=== PATIENT | male | born 1980 ===

== ENCOUNTER 2017-07-25 15:52 | Emergency (ER) | payer SELFPAY ==
[~2017-07-25] VITALS: Ht 170.2 cm; Wt 90.9 kg
[2017-07-25 16:00] VITALS: BP 159/99; PULSE 105; RESP 20; TEMP 98.6; O2SAT 98
--- NOTE | 2017-07-25 18:03 | PD ---
HPI Chief Complaint: Pain: Acute or Chronic Time Seen by Provider: 17:30 Travel History International Travel<30 days: No Contact w/Intl Traveler<30days: No Traveled to known affect area: No History of Present Illness HPI 37-year-old male presents to the emergency room for evaluation of severe right knee pain that started suddenly 4 hours prior to arrival. Patient denies any trauma or injury. States it has been aching over the past 3 days but pain was tolerable. States after sitting down for about 30 minutes, he could not get up , walk, or move his knee without excruciating pain. He called 911 and they brought him to the ED. Patient is currently homeless and has been walking more than normal lately. He has not taken anything for symptoms. Denies fever, chills, nausea, vomiting. Denies paresthesias. He has left knee pain as well but nothing compared to the right. His only chronic medical conditions are psychiatric. No daily medications. PFSH Social History Tobacco Use: Yes Allergies-Medications (Allergen,Severity, Reaction): Coded Allergies: No Known Allergies (Verified Allergy, Unknown, 07/25/17) Reported Meds & Prescriptions Reported Meds & Active Scripts Active No Active Prescriptions or Reported Medications Review of Systems Except as stated in HPI: all other systems reviewed are Neg Physical Exam Narrative GENERAL: Well-nourished, well-developed male in no acute distress. Afebrile. Ambulatory. SKIN: Focused skin assessment warm/dry. No erythema or ecchymosis. Mildly increased warmth to the right knee. HEAD: Normocephalic. EYES: No scleral icterus. No injection or drainage. NECK: Supple, trachea midline. No JVD or lymphadenopathy. CARDIOVASCULAR: Regular rate and rhythm without murmurs, gallops, or rubs. RESPIRATORY: Breath sounds equal bilaterally. No accessory muscle use. MUSCULOSKELETAL: No cyanosis. Left knee without any edema and with full range of motion. Right knee is extremely edematous with obvious effusion. Patient can flex to about 150 and cannot extend fully. 2+ dorsalis pedis pulse. Data Data Last Documented VS Vital Signs Date Time Temp Pulse Resp B/P (MAP) Pulse Ox O2 Delivery O2 Flow Rate FiO2 07/25/17 16:00 98.6 105 20 159/99 (119) 98 Room Air Orders Orders Complete Blood Count With Diff (07/25/17 17:41) Westergren Sedimentation Rate (07/25/17 17:41) Knee, Ltd (1 Or 2vws) (07/25/17 ) Lidocaine 1% Inj (50 Ml) (Xylocaine 1% I (07/25/17 21:00) Synovial Fl Cell Count + Diff (07/25/17 20:48) Synovial Fluid Crystals (07/25/17 20:48) Synovial Fluid Glucose (07/25/17 20:48) Synovial Fluid Total Protein (07/25/17 20:48) Fluid Culture And Gram Stain (07/25/17 20:48) Labs Laboratory Tests Test 07/25/17 18:20 White Blood Count 10.5 TH/MM3 Red Blood Count 4.10 MIL/MM3 Hemoglobin 14.1 GM/DL Hematocrit 39.1 % Mean Corpuscular Volume 95.3 FL Mean Corpuscular Hemoglobin 34.3 PG Mean Corpuscular Hemoglobin Concent 36.0 % Red Cell Distribution Width 12.2 % Platelet Count 211 TH/MM3 Mean Platelet Volume 6.7 FL Neutrophils (%) (Auto) 67.0 % Lymphocytes (%) (Auto) 22.1 % Monocytes (%) (Auto) 10.3 % Eosinophils (%) (Auto) 0.3 % Basophils (%) (Auto) 0.3 % Neutrophils # (Auto) 7.0 TH/MM3 Lymphocytes # (Auto) 2.3 TH/MM3 Monocytes # (Auto) 1.1 TH/MM3 Eosinophils # (Auto) 0.0 TH/MM3 Basophils # (Auto) 0.0 TH/MM3 CBC Comment AUTO DIFF Differential Comment AUTO DIFF CONFIRMED Platelet Estimate NORMAL Platelet Morphology Comment NORMAL Red Cell Morphology Comment NORMAL Erythrocyte Sedimentation Rate 63 mm/hr [facility] Medical Decision Making Medical Screen Exam Complete: Yes Emergency Medical Condition: Yes Medical Record Reviewed: Yes Differential Diagnosis Effusion, septic arthritis, strain, sprain, internal derangement Narrative Course 37-year-old male presents to the emergency room for evaluation of severe right knee pain and swelling that started earlier today. Patient has had mild achiness and bilateral knees for the past 3 days but he developed sudden onset swelling and pain 4 hours prior to arrival. Patient denies fever or chills. He is currently homeless. Denies any trauma or injury. Physical exam reveals large and obvious effusion of the right knee. Right lower extremity is neurovascular intact. Right knee is slightly more red and hot than the left. X -ray shows effusion. CBC and sedimentation rate obtained. CBC is unremarkable. Sedimentation rate is elevated at 63. I have suspicion for septic arthritis. Patient will be signed out to nighttime provider pending knee aspiration. Please see his note for further details and disposition. Scripts No Active Prescriptions or Reported Meds Condition: Alexandra Garcia Jul 25, 2017 18:03
--- NOTE | 2017-07-25 18:37 | RADRPT ---
EXAM DATE/TIME: 07/25/2017 18:26 [facility] COMPARISON: No previous studies available for comparison. INDICATIONS : Swelling with no known injury. MEDICAL HISTORY : None. SURGICAL HISTORY : None. ENCOUNTER: Initial ACUITY: 1 day PAIN SCORE: 9/10 LOCATION: Right Knee. FINDINGS: There is a large suprapatellar knee joint effusion. Mild to moderate osteoarthritis is noted involvin g the patellofemoral and lateral femorotibial joints. There is no acute fracture or dislocation. CONCLUSION: 1. Large suprapatellar knee joint effusion. 2. Mild to moderate osteoarthritis involving the patellofemoral and lateral femorotibial joints. 3. No acute fracture or dislocation. Karthik Vee MD on July 25, 2017 at 18:35 Board Certified Radiologist. This report was verified electronically.
[2017-07-25 18:42] LABS: BASOPHIL % 0.3 % (0.0-2.0); EOSINOPHIL % 0.3 % (0.0-4.0); HEMATOCRIT 39.1 % (39.0-51.0); LYMPH % 22.1 % (9.0-44.0); LYMPHOCYTE # 2.3 TH/MM3 (1.0-4.8); MEAN CELL VOLUME 95.3 FL (80.0-100.0); MEAN CORPUSCULAR HEMOGLOBIN 34.3 PG (27.0-34.0); MONO % 10.3 % (0.0-8.0); PLATELET COUNT 211 TH/MM3 (150-450); RED CELL DISTRIBUTION WIDTH 12.2 % (11.6-17.2); WHITE BLOOD COUNT 10.5 TH/MM3 (4.0-11.0)
[2017-07-25 18:45] LABS: HEMO FLAGS AUTO DIFF
[2017-07-25 20:27] LABS: PLATELET ESTIMATE SMEAR NORMAL (NORMAL); PLATELET MORPHOLOGY NORMAL (NORMAL); SCAN/DIFF AUTO DIFF CONFIRMED
[2017-07-25] MEDS ORDERED: LIDOCAINE HCL 1% 50 ML VIAL INFIL ONE (21:00)
--- NOTE | 2017-07-25 21:19 | PD ---
Physical Exam Narrative Patient was seen by my exceptional children teacher assistant and signed out to me. Data Data Last Documented VS Vital Signs Date Time Temp Pulse Resp B/P (MAP) Pulse Ox O2 Delivery O2 Flow Rate FiO2 07/25/17 16:00 98.6 105 20 159/99 (119) 98 Room Air Orders Orders Complete Blood Count With Diff (07/25/17 17:41) W[place]gren Sedimentation Rate (07/25/17 17:41) Knee, Ltd (1 Or 2vws) (07/25/17 ) Lidocaine 1% Inj (50 Ml) (Xylocaine 1% I (07/25/17 21:00) Synovial Fl Cell Count + Diff (07/25/17 20:48) Synovial Fluid Crystals (07/25/17 20:48) Synovial Fluid Glucose (07/25/17 20:48) Synovial Fluid Total Protein (07/25/17 20:48) Fluid Culture And Gram Stain (07/25/17 20:48) Labs Laboratory Tests Test 07/25/17 18:20 07/25/17 21:28 White Blood Count 10.5 TH/MM3 Red Blood Count 4.10 MIL/MM3 Hemoglobin 14.1 GM/DL Hematocrit 39.1 % Mean Corpuscular Volume 95.3 FL Mean Corpuscular Hemoglobin 34.3 PG Mean Corpuscular Hemoglobin Concent 36.0 % Red Cell Distribution Width 12.2 % Platelet Count 211 TH/MM3 Mean Platelet Volume 6.7 FL Neutrophils (%) (Auto) 67.0 % Lymphocytes (%) (Auto) 22.1 % Monocytes (%) (Auto) 10.3 % Eosinophils (%) (Auto) 0.3 % Basophils (%) (Auto) 0.3 % Neutrophils # (Auto) 7.0 TH/MM3 Lymphocytes # (Auto) 2.3 TH/MM3 Monocytes # (Auto) 1.1 TH/MM3 Eosinophils # (Auto) 0.0 TH/MM3 Basophils # (Auto) 0.0 TH/MM3 CBC Comment AUTO DIFF Differential Comment AUTO DIFF CONFIRMED Platelet Estimate NORMAL Platelet Morphology Comment NORMAL Red Cell Morphology Comment NORMAL Erythrocyte Sedimentation Rate 63 mm/hr Synovial Fluid Color YELLOW Synovial Fluid Appearance MODERATE Synovial Fluid WBC 22109 /MM3 Synovial Fluid RBC 3550 /MM3 Synovial Fluid Neutrophils 96 % Synovial Fluid Lymphocytes 1 % Synovial Fluid Monocytes 3 % Synovial Fluid Crystals POS - URIC ACID MDM Supervised Visit with JOSH: Yes Interpretation(s) Last Impressions Knee X-Ray 07/25/17 0000 Signed Impressions: Service Date/Time: Tuesday, July 25, 2017 18:26 - CONCLUSION: 1. Large suprapatellar knee joint effusion. 2. Mild to moderate osteoarthritis involving the patellofemoral and lateral femorotibial joints. 3. No acute fracture or dislocation. Karthik Vee MD 2300 p.m. CBC WBC 10.5. Hemoglobin 14.1 hematocrit 39.1. Normal differential. Sedimentation rate 63. Synovial fluid positive for uric acid crystals. Positive with WBC RBC and neutrophil. Narrative Course Right knee aspiration done. Procedures Procedure Narrative 1% lidocaine with local anesthesia. Betadine wash. Right knee aspiration was done under sterile condition. 10 cc syringe and #16-gauge needle use. Patient has 35 cc of cloudy yellow fluid. Fluid was sent for culture, Gram stain, cell count differential, glucose and protein. Diagnosis Primary Impression: Effusion, right knee Additional Impression: Gouty arthritis Patient Instructions: General Instructions Departure Forms: Tests/Procedures Additional Instruction: Take medication as directed. Follow with an orthopedist and personal physician. Return if worse. Med/Other Pt SpecificInfo: Prescription(s) given Scripts Ibuprofen (Ibuprofen) 600 Mg Tab 600 MG PO TID for Pain, #30 TAB 0 Refills Prov: Remington Jackson MD 07/25/17 Disposition: 01 DISCHARGE HOME Condition: Stable Remington Jackson MD Jul 25, 2017 21:19
[2017-07-25 22:51] LABS: WBC, SYNOVIAL FLUID 25375 /MM3 (0-200)
[2017-07-25 22:52] LABS: SYNOVIAL FLUID CRYSTALS POS - URIC ACID
[2017-07-25] MEDS ORDERED: IBUP-232 PO (23:04)
[2017-07-25] MEDS ORDERED: KETOROLAC TROMETHAMINE 60 MG/2 ML (IM) VIAL IM ONE (23:15)
[2017-07-25] MEDS ORDERED: DEXAMETHASONE SOD PHOS 4 MG/ML VIAL IM ONE (23:15)
[2017-07-27 19:53] LABS: TOTAL PROTEIN, SYNOVIAL FLUID 4.7 g/dL (1.0-3.0)
== END 2017-07-26 00:21 | disposition home or self-care (01) ==
LOC: NEPK 15:52 → NEPD 07-26 00:21
DX: M25.461 Effusion, right knee (principal); M10.9 Gout, unspecified; Z72.0 Tobacco use
CPT/HCPCS: 20610; 73560; 82945; 84157; 85025; 85652; 87070; 87205; 89051; 89060; 96372; 99284; J1100; J1885